=== PATIENT | male | born 1940 | race Hispanic/Latino ===

== ENCOUNTER 2022-06-23 03:50 | Emergency (ER) | payer OTHER ==
--- NOTE | 2022-06-23 05:39 | ER ---
Nurse's Notes [facility] Name: Albert Nails Age: 81 yrs Sex: Male : 1940 Arrival Date: 06/23/2022 Time: 03:57 Bed 6 Private MD: Diagnosis: Unspecified injury of head, initial encounter;Contusion of lower back and pelvis;Contusion of back wall of thorax Presentation: 06/23 03:57 Chief complaint: EMS states: Toned out for a fall after getting out of bed, pt c/o pain ll3 to scalp and back 10. Coronavirus screen: Vaccine status: Patient reports receiving the 2nd dose of the covid vaccine. At this time, the client does not indicate any symptoms associated with coronavirus-19. Ebola Screen: No symptoms or risks identified at this time. Initial Sepsis Screen: Does the patient meet any 2 criteria? No. Patient's initial sepsis screen is negative. Does the patient have a suspected source of infection? No. Patient's initial sepsis screen is negative. Risk Assessment: Do you want to hurt yourself or someone else? Patient reports no desire to harm self or others. Onset of symptoms was June 23, 2022. Care prior to arrival: None. 03:57 Method Of Arrival: EMS: [facility] 3 03:57 Acuity: HOANG 3 ll3 Triage Assessment: 04:00 General: Appears uncomfortable, Behavior is calm, cooperative. Pain: Complains of pain ll3 in right temporal area and back Pain does not radiate. Pain currently is 5 out of 10 on a pain scale. Pain began suddenly, Is continuous. Neuro: Level of Consciousness is awake, alert, obeys commands, Oriented to person, place, time, situation. Respiratory: Respiratory effort is even, unlabored, Respiratory pattern is regular, symmetrical. Derm: Skin is pink, warm \T\ dry. Musculoskeletal: Circulation, motion, and sensation intact. Historical: - Allergies: 04:00 No Known Allergies; ll3 - Home Meds: 04:00 aspirin Oral [Active]; Hydrochlorothiazide Oral [Active]; Lisinopril Oral [Active]; ll3 - PMHx: 04:00 Parkinson's disease; Dementia; Hypertensive disorder; ll3 - Immunization history:: Client reports receiving the 2nd dose of the Covid vaccine. - Social history:: Smoking status: Patient denies any tobacco usage or history of. - Family history:: not pertinent. - Hospitalizations: : No recent hospitalization is reported. Screenin:55 [facility] ED Fall Risk Assessment (Adult) History of falling in the last 3 months, ll3 including since admission Yes- single mechanical fall (1 pt) Confusion or Disorientation No (0 pts) Intoxicated or Sedated No (0 pts) Impaired Gait Yes (1 pt) Mobility Assist Device Used No (0 pt) Altered Elimination No (0 pt) Score/Fall Risk Level 0 - 2 = Low Risk Oriented to surroundings, Maintained a safe environment, Educated pt \T\ family on fall prevention, incl call for assistance when getting out of bed, Assessed \T\ reinforced patient's understanding of fall precautions. Humpty Dumpty Scale Fall Assessment Tool (age< 18yrs) Age 13 years and above (1 pt). Abuse screen: Denies threats or abuse. Denies injuries from another. Nutritional screening: No deficits noted. Tuberculosis screening: No symptoms or risk factors identified. Fall Risk Fall in past 12 months (25 points). Secondary diagnosis (15 points) dementia, No IV (0 pts). Ambulatory Aid- None/Bed Rest/Nurse Assist (0 pts). Gait- Weak (10 pts.). Mental Status- Overestimates/Forgets Limitations (15 pts.). Total Ayoub Fall Scale indicates High Risk Score (45 or more points). Fall prevention measures have been instituted. Side Rails Up X 2 Placed Close to Nursing Station Family Present and informed to notify staff if the need to leave the bedside As available patient and family educated on Fall Prevention Program and Strategies. Assessment: 04:02 General: See triage assessment. ll3 05:31 Reassessment: No changes from previously documented assessment. Patient and/or family ll3 updated on plan of care and expected duration. Pain level reassessed. Patient is alert, oriented x 3, equal unlabored respirations, skin warm/dry/pink. Vital Signs: 03:57 BP 158 / 81; Pulse 82; Resp 17; Temp 97.9(O); Pulse Ox 100% on R/A; Weight 72.57 kg ll3 (R); Height 5 ft. 6 in. (167.64 cm) (R); Pain 5/10; 05:31 BP 171 / 76; Pulse 73; Resp 16; Pulse Ox 96% on R/A; ll3 03:57 Body Mass Index 25.82 (72.57 kg, 167.64 cm) ll3 ED Course: 03:57 Patient arrived in ED. ds4 03:57 Herminio Monk MD is Attending Physician. rn 04:00 Triage completed. ll3 04:00 Arm band placed on Patient placed in an exam room, on a stretcher, on pulse oximetry. ll3 04:24 Head C Spine Mpr Wo Con In Process Unspecified. EDMS 04:36 XRAY Thoracic Spine (Ap/lat) In Process Unspecified. EDMS 04:36 XRAY Lumbar Spine (3 Views) In Process Unspecified. EDMS 04:36 XRAY Pelvis In Process Unspecified. EDMS 05:56 No provider procedures requiring assistance completed. Patient did not have IV access ll3 during this emergency room visit. 05:57 Patient has correct armband on for positive identification. Placed in gown. Bed in low ll3 position. Call light in reach. Side rails up X 1. Adult w/ patient. Administered Medications: No medications were administered Medication: 05:57 VIS not applicable for this client. ll3 Outcome: 05:38 Discharge ordered by . rn 05:56 Discharged to home ambulatory, with family. ll3 05:56 Condition: stable 05:56 Discharge instructions given to patient, family, Instructed on discharge instructions, follow up and referral plans. Demonstrated understanding of instructions, follow-up care. 05:57 Patient left the ED. ll3 Signatures: Dispatcher [employer] EDNV Herminio Monk MD MD rn Swanson, Donovan ds4 Ines Ibarra RN RN ll3
--- NOTE | 2022-06-23 05:39 | EDPHYS ---
Physician Documentation [facility] Name: Albert Nails Age: 81 yrs Sex: Male : 1940 Arrival Date: 06/23/2022 Time: 03:57 Bed 6 Private MD: ED Physician Herminio Monk HPI: 06/23 04:21 This 81 yrs old Male presents to ER via EMS with complaints of Fall Injury. rn 04:21 Details of fall: The patient fell from an upright position. Onset: The symptoms/episode rn began/occurred just prior to arrival. Associated injuries: The patient sustained injury to the head, upper back injury, injury to the low back. Severity of symptoms: At their worst the symptoms were very mild, in the emergency department the symptoms are unchanged. The patient has experienced similar episodes in the past. The patient has not recently seen a physician. EMS states patient s/p fall, possibly from standing, with "bump to head". Pt has parkinson's, recurrent falls and generalized weakness. NO fever or recent illness. Pt reports mild back pain as well. Denies extremity pain. . Historical: - Allergies: 04:00 No Known Allergies; ll3 - Home Meds: 04:00 aspirin Oral [Active]; Hydrochlorothiazide Oral [Active]; Lisinopril Oral [Active]; ll3 - PMHx: 04:00 Parkinson's disease; Dementia; Hypertensive disorder; ll3 - Immunization history:: Client reports receiving the 2nd dose of the Covid vaccine. - Social history:: Smoking status: Patient denies any tobacco usage or history of. - Family history:: not pertinent. - Hospitalizations: : No recent hospitalization is reported. ROS: 04:21 Constitutional: Negative for fever, chills, and weight loss, Eyes: Negative for injury, rn pain, redness, and discharge, Neck: Negative for injury, pain, and swelling, Cardiovascular: Negative for chest pain, palpitations, and edema, Respiratory: Negative for shortness of breath, cough, wheezing, and pleuritic chest pain, Abdomen/GI: Negative for abdominal pain, nausea, vomiting, diarrhea, and constipation, Back: + mid and lower back pain : Negative for injury, bleeding, discharge, and swelling, MS/Extremity: Negative for injury and deformity, Skin: Negative for injury, rash, and discoloration, Neuro: Negative for numbness, tingling, and seizure. Exam: 04:21 Constitutional: This is a well developed, well nourished patient who is awake, alert, rn and in no acute distress. Head/Face: Normocephalic, + contusion on top/back of scalp, no depression, no laceration Eyes: Periorbital areas with no swelling, redness, or edema. Neck: No midline cervical tenderness Chest/axilla: Normal chest wall appearance and motion. Nontender with no deformity. No lesions are appreciated. Cardiovascular: Regular rate and rhythm. No pulse deficits. Respiratory: No increased work of breathing, no retractions or nasal flaring. Abdomen/GI: Soft, non-tender Back: Mild mid thoracic and upper lumbar perispinal tenderness, no stepoff Skin: Warm, dry MS/ Extremity: Pulses equal, no cyanosis. Neurovascular intact. Full, normal range of motion. Equal circumference. Neuro: Awake and alert, GCS 15, oriented to person, place, and situation. Cranial nerves II-XII grossly intact. Motor strength 4/5 in all extremities. Sensory grossly intact. Vital Signs: 03:57 BP 158 / 81; Pulse 82; Resp 17; Temp 97.9(O); Pulse Ox 100% on R/A; Weight 72.57 kg ll3 (R); Height 5 ft. 6 in. (167.64 cm) (R); Pain 5/10; 05:31 BP 171 / 76; Pulse 73; Resp 16; Pulse Ox 96% on R/A; ll3 03:57 Body Mass Index 25.82 (72.57 kg, 167.64 cm) ll3 MDM: 03:57 Patient medically screened. rn 05:37 Differential diagnosis: abrasion, closed head injury, contusion, fracture, sprain, rn strain. Data reviewed: vital signs, nurses notes, lab test result(s), radiologic studies, CT scan, plain films, and as a result, I will discharge patient. Counseling: I had a detailed discussion with the patient and/or guardian regarding: the historical points, exam findings, and any diagnostic results supporting the discharge/admit diagnosis, lab results, radiology results, the need for outpatient follow up, to return to the emergency department if symptoms worsen or persist or if there are any questions or concerns that arise at home. Special discussion: Based on the patient's history, exam and DX evaluation, there is no indication for emergent intervention or inpatient TX. It is understood by the patient/guardian that if the SXs persist or worsen they need to return immediately for re-evaluation. I discussed with the patient/guardian in detail that at this point there is no indication for admission to the hospital. It is understood, however, that if the symptoms persist or worsen the patient needs to return immediately for re-evaluation. Further emergent ED testing is not indicated at this point in time. I discussed with the patient/guardian in detail the need to arrange with the PCP or specialist further outpatient testing, MRI, Based on the history and exam findings, there is no indication for further emergent testing or inpatient evaluation. I discussed with the patient/guardian the need to see the primary care provider for further evaluation of the symptoms. ED course: NO acute traumatic findings, discussed result and printed out CT cspine result regarding sclerotic focus in cervical spine and need for f/u and MRI as outpt, handed to son. . 06/23 03:58 Order name: CT Head C Spine rn 06/23 03:58 Order name: XRAY Thoracic Spine (Ap/lat) rn 06/23 03:58 Order name: XRAY Lumbar Spine (3 Views) rn 06/23 03:58 Order name: XRAY Pelvis rn 06/23 04:02 Order name: Head C Spine Mpr Wo Con EDMS Administered Medications: No medications were administered Disposition Summary: 06/23/22 05:38 Discharge Ordered Location: Home rn Problem: new rn Symptoms: have improved rn Condition: Stable rn Diagnosis - Unspecified injury of head, initial encounter rn - Contusion of lower back and pelvis rn - Contusion of back wall of thorax rn Followup: rn - With: Private Physician - When: As needed - Reason: Recheck today's complaints, Re-evaluation by your physician Discharge Instructions: - Discharge Summary Sheet rn - Contusion rn - Head Injury, Adult rn Forms: - Medication Reconciliation Form rn - Thank You Letter rn - Antibiotic airborne missions systems - Prescription Opioid Use rn Signatures: Dispatcher [employer] EDMS Herminio Monk MD MD rn Loubet, Lynsea, RN RN ll3
[2022-06-23 06:01] VITALS: TEMP 97.9
[2022-06-23 06:02] VITALS: BP 171/76; O2SAT 96
--- NOTE | 2022-06-23 14:17 | RAD REPORT ---
EXAM DESCRIPTION: CT - CTHCSPWOC - 06/23/2022 6:17 am CLINICAL HISTORY: The patient is 81 years old and is Male; fall, head injury TECHNIQUE: Axial computed tomography images of the head/brain and cervical spine without intravenous contrast. Sagittal and coronal reformatted images were created and reviewed. This CT exam was pe rformed using one or more of the following dose reduction techniques: automated exposure control, a djustment of the mA and/or kV according to patient size, and/or use of iterative reconstruction techn ique. COMPARISON: No relevant prior studies available. FINDINGS: BRAIN: No extra-axial fluid collection. No intracranial hemorrhage. No focal mc-white matter differentiation abnormality. Moderate global cerebral atrophy with commensurate sulcal and ventricular enlargement, not g reater than expected for patient age. Mild periventricular white matter changes, suggesting microangiopathy. MIDLINE SHIFT: No midline shift. VENTRICLES: See above. SKULL: See below. SINUSES: Unremarkable as visualized. No acute sinusitis. MASTOID AIR CELLS: Unremarkable as visualized. No mastoid effusion. ORBITS: Left lens replacement. VERTEBRAE: Small indeterminate well-circumscribed sclerotic focus within the right lateral body of the C5 vertebra (series CT #302, axial image 54). Multilevel degenerative changes of the cervical spine, greatest at the C5-6 and C6-7 levels, with no vertebral or facet subluxation, acute fracture, or dislocation. DISCS/SPINAL CANAL/NEURAL FORAMINA: No transtentorial herniation. No high-grade bony narrowing of the spinal canal, though there is at least moderate narrowin g of the left C2-3 neural foramina secondary to degenerative change. OTHER BONES/JOINTS: No fracture of the calvarium or visualized facial bones. SOFT TISSUES: Unremarkable. IMPRESSION: 1. No acute intracranial abnormality. 2. Chronic and senescent changes, not greater than expected for patient age. 3. Degenerative changes of cervical spine with no acute osseous abnormality. 4. Small indeterminate well-circumscribed sclerotic focus within the right lateral body of the C5 v ertebra (series CT #302, axial image 54). In the absence of known or suspected metastatic disease, th is is likely of no clinical significance. However, if felt clinically indicated, further evaluation b y bone scan could be performed to evaluate for potential sclerotic bone metastases. Electronically signed by: Miguel Jaimes MD 06/23/2022 4:50 AM CERAMIC MOLD DESIGNER Due to temporary technical issues with the PACS/Fluency reporting system, reports are being signed by the in house radiologists without review as a courtesy to insure prompt reporting. The interpreting radiologist is fully responsible for the content of the report.
--- NOTE | 2022-06-23 14:19 | RAD REPORT ---
EXAM DESCRIPTION: RAD - Thoracic Spine Ap/Lat - 06/23/2022 4:35 am CLINICAL HISTORY: The patient is 81 years old and is Male; PAIN TECHNIQUE: Frontal and lateral views of the thoracic spine. COMPARISON: No relevant prior studies available. FINDINGS: VERTEBRAE: Multilevel spondylosis with multilevel flowing osteophytes. No acute osseous abnormality or subluxation is appreciated. DISC SPACES: No acute findings. No significant narrowing. SOFT TISSUES: Unremarkable. IMPRESSION: No acute findings in the thoracic spine. Electronically signed by: Miguel Jaimes MD 06/23/2022 4:52 AM GYPSUM ROOFER Due to temporary technical issues with the PACS/Fluency reporting system, reports are being signed by the in house radiologists without review as a courtesy to insure prompt reporting. The interpreting radiologist is fully responsible for the content of the report.
--- NOTE | 2022-06-23 14:25 | RAD REPORT ---
EXAM DESCRIPTION: RAD - Lumbar Spine 3 Views - 06/23/2022 4:35 am CLINICAL HISTORY: The patient is 81 years old and is Male; PAIN TECHNIQUE: Frontal and lateral views of the lumbar spine and sacrum. COMPARISON: No relevant prior studies available. FINDINGS: VERTEBRAE: Multilevel spondylosis no significant vertebral body height loss, evidence o f acute fracture, or significant subluxation. SACRUM/COCCYX: Unremarkable as visualized. No acute fracture. DISC SPACES: No acute findings. No significant narrowing. SOFT TISSUES: Surgical clips redemonstrated overlying the bilateral pelvis. VASCULATURE: Vascular calcifications. GASTROINTESTINAL TRACT: Visualized bowel gas pattern is unremarkable. IMPRESSION: No acute findings in the lumbar spine. Electronically signed by: Miguel Jaimes MD 06/23/2022 4:54 AM PROFILE SHAPER OPERATOR Due to temporary technical issues with the PACS/Fluency reporting system, reports are being signed by the in house radiologists without review as a courtesy to insure prompt reporting. The interpreting radiologist is fully responsible for the content of the report.
--- NOTE | 2022-06-23 14:27 | RAD REPORT ---
EXAM DESCRIPTION: RAD - Pelvis - 06/23/2022 4:35 am CLINICAL HISTORY: The patient is 81 years old and is Male; BLUNT TRAUMA TECHNIQUE: Frontal view of the pelvis. COMPARISON: No relevant prior studies available. FINDINGS: BONES/JOINTS: Degenerative changes of the lumbosacral spine. No acute fracture. No dislocation. SOFT TISSUES: Surgical clips demonstrated overlying the bilateral pelvis. IMPRESSION: No acute findings in the pelvis. Electronically signed by: Miguel Jaimes MD 06/23/2022 4:56 AM GEM TECHNICIAN Due to temporary technical issues with the PACS/Fluency reporting system, reports are being signed by the in house radiologists without review as a courtesy to insure prompt reporting. The interpreting radiologist is fully responsible for the content of the report.
== END 2022-06-23 05:57 | disposition home or self-care (01) ==
LOC: ER 03:50
DX: S09.90XA Unspecified injury of head, initial encounter (principal); S30.0XXA Contusion of lower back and pelvis, initial encounter; S20.229A Contusion of unspecified back wall of thorax, initial encounter; I10 Essential (primary) hypertension; G20 Parkinson's disease; F02.80 Dementia in other diseases classified elsewhere, unspecified severity, without behavioral disturbance, psychotic disturbance, mood disturbance, and anxiety; Z79.82 Long term (current) use of aspirin
CPT/HCPCS: 70450; 72070; 72100; 72125; 72170; 99283

== ENCOUNTER 2022-08-01 10:12 | Emergency (ER) | payer OTHER ==
--- OUTSIDE RECORDS SUMMARY | 2022-08-01 10:15 | XMS REPORT | Continuity of Care Document ---
:1940 Author Organization [facility] t Address [address] [place] [address] Care Team Providers Name Role Phone Angela Snyder Attending Clinician Problems Condition Condition Condition Status Onset Resolution Last Treating Co mments Source Name Details Category Date Date Treatment Clinician Date G20 - G20 - Diagnosis Active 2016-12-22 Mem oria PARKINSON' PARKINSON' 12-11 19:31:00 l S DISEASE S DISEASE 00:01: Herm yulisa R41.3 - R41.3 - 00 OTHER OTHER Active 2016 SOFIYA Cardona Allergies, Adverse Reactions, Alerts This patient has no known allergies or adverse reactions. Medications This patient has no known medications. Procedures This patient has no known procedures. Encounters Start End Encounter Admission Attending Care Care Encounter Source Date/Time Date/Time Type Type Clinicians Facility Department ID 2016-12-23 2016-12-23 Outpt Diag nullFlavo [facility] [id number] Memoria 00:21:00 04:59:00 Services r Outpatient [address] [facility] 2016-12-23 2016-12-23 Outpt Diag lindaFlavmiriam [facility] [id number] Memoria 00:21:00 04:59:00 Services r Outpatient [address] [facility] 2016-12-22 2016-12-22 Outpatient JOSÉ LUIS Snyder [facility] [id number] 19:21:00 23:59:00 Angela Gonsalves Results This patient has no known results.
--- NOTE | 2022-08-01 11:13 | RAD REPORT ---
EXAM DESCRIPTION: RAD - Chest Single View - 08/01/2022 10:48 am CLINICAL HISTORY: AMS COMPARISON: None TECHNIQUE: AP portable chest image was obtained 08/01/2022 10:48 am . FINDINGS: No acute lung parenchymal process. Very minimal interstitial pattern present believed be b aseline. Heart and vasculature are normal. No measurable pleural effusion and no pneumothorax. No acu te bony abnormality seen. No acute aortic findings suspected. IMPRESSION: No acute cardiopulmonary process.
[2022-08-01 11:24] LABS: Albumin 3.9 g/dL (3.4-5.0); Bilirubin Total 0.9 mg/dL (0.2-1.0); Potassium 3.9 mmol/L (3.5-5.1); Protein, Total 7.7 g/dL (6.4-8.2); Thyroid Stimulating Hormone 0.858 uIU/mL (0.358-3.740); Troponin High Sensitivity 11.9 pg/mL (<58.9)
[2022-08-01 11:49] LABS: Urine Blood Negative (Negative); Urine Glucose Negative (Negative); Urine Protein 1+ (Negative); Urine Specific Gravity 1.025 (1.005-1.030)
[2022-08-01 11:56] LABS: Absolute Lymphocytes (CBC) 1.2 K/uL (0.7-4.9); Hematocrit 42.3 % (39.6-49.0); Lymphocytes % 23.9 % (15.3-44.8); MPV 8.9 fL (7.6-11.3)
[2022-08-01 11:59] LABS: Urine Bacteria None Seen /HPF (<20); Urine Mucus 2+ /HPF (None Seen); Urine RBC <5 /HPF (None Seen)
--- NOTE | 2022-08-01 12:28 | RAD REPORT ---
EXAM DESCRIPTION: CT - Head Brain Wo Cont - 08/01/2022 12:21 pm CLINICAL HISTORY: Mental status change, unknown cause COMPARISON: No comparisons TECHNIQUE: All CT scans are performed using dose optimization technique as appropriate and may inclu de automated exposure control or mA/KV adjustment according to patient size. FINDINGS: No intracranial hemorrhage, hydrocephalus or extra-axial fluid collection.No areas of brai n edema or evidence of midline shift. Mild chronic small vessel ischemic changes. Cerebral atrophy wh ich is mild age advanced. The paranasal sinuses and mastoids are clear. The calvarium is intact. IMPRESSION: No acute intracranial abnormality.
--- NOTE | 2022-08-01 14:06 | EDPHYS ---
Physician Documentation [facility] Name: Albert Nails Age: 81 yrs Sex: Male : 1940 Arrival Date: 08/01/2022 Time: 10:13 Bed 19 Private MD: Gato Robison V ED Physician Da Johnson HPI: 08/01 14:07 This 81 yrs old Male presents to ER via Ambulatory with complaints of S/S of rt Possible Stroke. 14:07 Patient presents to the ED with his sons for not speaking, decline in his mental state. rt The patient is not opening his mouth which concerned his sons. He has a longstanding history of Parkinson's disease with waxing and waning symptoms. Denies injury, other acute complaints. Symptoms are moderate in severity, no other aggravating or alleviating factors.. Historical: - Home Meds: 12:12 Aspirin Oral [Active]; Hydrochlorothiazide Oral [Active]; lisinopril Oral [Active]; eh3 - PMHx: 12:12 Dementia; Hypertensive disorder; Parkinson's disease; eh3 - Immunization history:: Adult Immunizations up to date. - Social history:: Smoking status: unknown. - Family history:: not pertinent. ROS: 14:07 Constitutional: Negative for fever, chills, and weight loss, Eyes: Negative for injury, rt pain, redness, and discharge, Cardiovascular: Negative for chest pain, palpitations, and edema, Respiratory: Negative for shortness of breath, cough, wheezing, and pleuritic chest pain, Abdomen/GI: Negative for abdominal pain, nausea, vomiting, diarrhea, and constipation, Skin: Negative for injury, rash, and discoloration. 14:07 Neuro: Positive for Decrease in the amount of speech, no facial droop. Exam: 14:07 Radiologist reports: No acute findings rt 14:07 ECG was reviewed by the Attending Physician. 14:07 Neuro: Paucity of speech, follows instructions, moves all 4 extremities equally. Sensation not testable. 14:07 Psych: Not assessable. Vital Signs: 10:20 BP 172 / 80; Pulse 64; Resp 16; Temp 98.0; Pulse Ox 99% on R/A; Pain 0/10; hb 12:00 BP 175 / 90; Pulse 59; Resp 18; Pulse Ox 100% on R/A; eh3 13:00 BP 184 / 89; Pulse 62; Resp 20; Pulse Ox 100% on R/A; eh3 14:00 BP 188 / 78; Pulse 61; Resp 18; Pulse Ox 99% on R/A; eh3 MDM: 10:25 Patient medically screened. rt 14:10 Differential diagnosis: CVA, TIA, Dementia, Parkinson disease, metabolic disorder. Data rt reviewed: vital signs, nurses notes, lab test result(s), EKG, radiologic studies. Management of patient was discussed with the following: Primary Care Provider: Believes that Parkinson's disease is worsening, no need to admit to the hospital.. I considered the following discharge prescriptions or medication management in the emergency department Antibiotics: At this time antibiotics are not recommended. Test considered but Not performed: MRI: Low suspicion for acute CVA, no lateralizing deficits. Counseling: I had a detailed discussion with the patient and/or guardian regarding: the need for outpatient follow up, a family practitioner. 08/01 10:26 Order name: CBC with Diff; Complete Time: 12:02 rt 08/01 10:26 Order name: CMP; Complete Time: 11:40 rt 08/01 10:26 Order name: Troponin High Sensitivity; Complete Time: 11:40 rt 08/01 10:26 Order name: UA MICROSCOPIC; Complete Time: 12:02 rt 08/01 10:26 Order name: CPK; Complete Time: 11:40 rt 08/01 10:26 Order name: TSH; Complete Time: 11:40 rt 08/01 10:26 Order name: EKG; Complete Time: 10:27 rt 08/01 10:26 Order name: EKG - Nurse/Tech; Complete Time: 10:45 rt 08/01 10:26 Order name: Chest Single View XRAY; Complete Time: 11:17 rt 08/01 10:26 Order name: Urine Dipstick-Ancillary (obtain specimen); Complete Time: 14:13 rt 08/01 11:49 Order name: Urine Dipstick-Ancillary; Complete Time: 12:02 EDMS 08/01 12:03 Order name: CT Head Brain wo Cont rt 08/01 12:07 Order name: Head Brain Wo Cont; Complete Time: 14:00 EDMS EC:07 Rate is 57 beats/min. Rhythm is regular, Normal Sinus Rhythm with No ectopy. QRS Point [place]fort rt is Normal. AK interval is normal. QRS interval is normal. QT interval is normal. No Q waves. T waves are Normal. No ST changes noted. Interpreted by me. Administered Medications: No medications were administered Disposition Summary: 08/01/22 14:05 Discharge Ordered Location: Home rt Problem: an acute exacerbation rt Symptoms: have improved rt Condition: Stable rt Diagnosis - Parkinson's disease rt Followup: rt - With: Gato Robison MD - When: 2 - 3 days - Reason: Discharge Instructions: - Discharge Summary Sheet rt - Parkinson's Disease rt Forms: - Medication Reconciliation Form rt - Thank You Letter rt - Antibiotic Education rt - Prescription Opioid Use rt Signatures: Dispatcher [employer] EDBonita Hicks RN RN 3 Da Johnson MD MD rt
--- NOTE | 2022-08-01 14:06 | ER ---
Nurse's Notes [facility] Name: Albert Nails Age: 81 yrs Sex: Male : 1940 Arrival Date: 08/01/2022 Time: 10:13 Bed 19 Private MD: Gato Robison V Diagnosis: Parkinson's disease Presentation: 08/01 10:20 Chief complaint: Unable to open mouth this morning per son. Last known normal was last hb night at approx 8pm. Hx of Parkinsons. Coronavirus screen: At this time, the client does not indicate any symptoms associated with coronavirus-19. Ebola Screen: No symptoms or risks identified at this time. 10:20 Method Of Arrival: Ambulatory hb 10:20 Initial Sepsis Screen: Does the patient meet any 2 criteria? No. Patient's initial hb sepsis screen is negative. Does the patient have a suspected source of infection? No. Patient's initial sepsis screen is negative. Risk Assessment: Do you want to hurt yourself or someone else? Patient reports no desire to harm self or others. Onset of symptoms was August 01, 2022. 10:20 Acuity: HOANG 3 hb Historical: - Home Meds: 12:12 Aspirin Oral [Active]; Hydrochlorothiazide Oral [Active]; lisinopril Oral [Active]; eh3 - PMHx: 12:12 Dementia; Hypertensive disorder; Parkinson's disease; eh3 - Immunization history:: Adult Immunizations up to date. - Social history:: Smoking status: unknown. - Family history:: not pertinent. Screenin:12 [facility] ED Fall Risk Assessment (Adult) History of falling in the last 3 months, eh3 including since admission No falls in past 3 months (0 pts) Confusion or Disorientation Yes (5 pts) Intoxicated or Sedated No (0 pts) Impaired Gait No (0 pts) Mobility Assist Device Used No (0 pt) Altered Elimination No (0 pt) Score/Fall Risk Level 0 - 2 = Low Risk. Abuse screen: Denies threats or abuse. Denies injuries from another. Nutritional screening: No deficits noted. Tuberculosis screening: No symptoms or risk factors identified. Assessment: 10:16 Reassessment: Dr. Johnson at bedside to evaluate pt. hb 12:10 General: Appears in no apparent distress. comfortable, Behavior is calm, cooperative, eh3 appropriate for age. Pain: Denies pain. Neuro: Level of Consciousness is awake, alert, obeys commands, Oriented to person, place, time, situation. Cardiovascular: Capillary refill < 3 seconds Patient's skin is warm and dry. Respiratory: Airway is patent Respiratory effort is even, unlabored, Respiratory pattern is regular, symmetrical. 13:00 Reassessment: Patient appears in no apparent distress at this time. Patient and/or 3 family updated on plan of care and expected duration. Pain level reassessed. Patient is alert, oriented x 3, equal unlabored respirations, skin warm/dry/pink. 14:00 Reassessment: Patient appears in no apparent distress at this time. Patient and/or 3 family updated on plan of care and expected duration. Pain level reassessed. Patient is alert, oriented x 3, equal unlabored respirations, skin warm/dry/pink. Vital Signs: 10:20 BP 172 / 80; Pulse 64; Resp 16; Temp 98.0; Pulse Ox 99% on R/A; Pain 0/10; hb 12:00 BP 175 / 90; Pulse 59; Resp 18; Pulse Ox 100% on R/A; eh3 13:00 BP 184 / 89; Pulse 62; Resp 20; Pulse Ox 100% on R/A; eh3 14:00 BP 188 / 78; Pulse 61; Resp 18; Pulse Ox 99% on R/A; eh3 Vitals: 12:00 Cardiac Rhythm Assessment Sinus chris. eh3 ED Course: 10:13 Patient arrived in ED. mr 10:14 Gato Robison MD is Private Physician. mr 10:14 Jeevan Gibbons, DONTE is Primary Nurse. bp 10:15 Da Johnson MD is Attending Physician. rt 10:22 Triage completed. hb 10:50 Chest Single View XRAY In Process Unspecified. EDMS 10:50 Inserted saline lock: 22 gauge in right antecubital area, using aseptic technique. bp Blood collected. 11:29 Patient has correct armband on for positive identification. Bed in low position. Call mm9 light in reach. Side rails up X 1. Adult w/ patient. Warm blanket given. quality assurance monitor body on. Pulse ox on. NIBP on. 12:10 Arm band placed on. eh3 12:23 Head Brain Wo Cont In Process Unspecified. EDMS 13:00 Cleaned of incontinence. eh3 14:05 Gato Robison MD is Referral Physician. rt 14:08 No provider procedures requiring assistance completed. IV discontinued, intact, eh3 bleeding controlled, No redness/swelling at site. Pressure dressing applied. Administered Medications: No medications were administered Medication: 14:08 VIS not applicable for this client. eh3 Outcome: 14:05 Discharge ordered by MD. rt 14:14 Discharged to home ambulatory, with family. eh3 14:14 Condition: stable 14:14 Discharge instructions given to patient, family, Instructed on discharge instructions, follow up and referral plans. Demonstrated understanding of instructions, follow-up care. 14:19 Patient left the ED. eh3 Signatures: Dispatcher [employer] EDTN CortezLilli Heather, RN RN Jeevan Guzman, Bonita Gonzalez RN, DONTE KENT eh3 Jeaneth Ley mm9 Da Johnson MD MD rt
[2022-08-01 14:44] VITALS: TEMP 98
[2022-08-01 14:48] VITALS: BP 188/78; O2SAT 99
== END 2022-08-01 14:19 | disposition home or self-care (01) ==
LOC: ER 10:12
DX: G20 Parkinson's disease (principal); F03.90 Unspecified dementia, unspecified severity, without behavioral disturbance, psychotic disturbance, mood disturbance, and anxiety; I10 Essential (primary) hypertension; Z79.82 Long term (current) use of aspirin
CPT/HCPCS: 36415; 70450; 71045; 80053; 81003; 81015; 82550; 84443; 84484; 85025; 93005; 99284

== ENCOUNTER 2022-08-06 14:31 | Emergency (ER) | payer OTHER ==
--- OUTSIDE RECORDS SUMMARY | 2022-08-06 14:34 | XMS REPORT | Continuity of Care Document ---
:1940 [address] [facility] t Address [address] [place] [address] Care Team Providers Name Role Phone Angela [...] Department ID 2016-12-23 2016-12-23 Outpt Diag nullFlavo [facility] [id number] Memoria 00:21:00 04:59:00 Services r Outpatient 00 l Imaging [facility] 2016-12-23 2016-12-23 Outpt Diag lindaFlavmiriam [facility] [id number] Memoria 00:21:00 04:59:00 Services r Outpatient 00 l Imaging [facility] 2016-12-22 2016-12-22 Outpatient JOSÉ LUIS Snyder [facility] [id number] 19:21:00 23:59:00 Angela Gonsalves Results This patient has no known results.
--- NOTE | 2022-08-06 15:36 | RAD REPORT ---
EXAM DESCRIPTION: CT - Head C Spine Mpr Wo Con - 08/06/2022 3:23 pm CLINICAL HISTORY: Head and neck injury status post fall. Head and neck pain COMPARISON: For 2021 TECHNIQUE: Computed axial tomography of the head and cervical spine was obtained. Sagittal and coronal reconstruction was performed. All CT scans are performed using dose optimization technique as appropriate and may include automated exposure control or mA/KV adjustment according to patient size. FINDINGS: An intracranial bleed is not seen. The ventricles are normal in caliber. No significant hypodensity within the brain. An extra-axial fluid collection is not noted. Fluid within the visualized sinuses and mastoids is not seen A cervical fracture is not visualized. No dislocation is noted. Spondylosis cervical spine IMPRESSION: No acute intracranial abnormality is seen. A cervical fracture is not visualized. If the patient continues to have symptoms to suggest intracranial /spinal cord pathology then MRI wou ld be recommended
[2022-08-06 16:02] LABS: Hematocrit 40.7 % (39.6-49.0); Lymphocytes % 18.1 % (15.3-44.8); MCV 89.5 fL (80-100); MPV 8.1 fL (7.6-11.3); RBC Red Blood Cell Count 4.55 M/uL (4.33-5.43)
[2022-08-06 16:16] LABS: Potassium 4.1 mmol/L (3.5-5.1)
[2022-08-06 17:01] LABS: Urine Blood Negative (Negative); Urine Glucose Negative (Negative); Urine Protein 2+ (Negative); Urine Specific Gravity 1.025 (1.005-1.030)
--- NOTE | 2022-08-06 17:05 | EDPHYS ---
Physician Documentation [facility] Name: Albert Nails Age: 81 yrs Sex: Male : 1940 Arrival Date: 08/06/2022 Time: 14:32 Bed 6 Private MD: ED Physician Zaheer Pink HPI: 08/06 18:08 This 81 yrs old Male presents to ER via Wheelchair with complaints of Syncope, kdr Fall Injury. 18:08 Patient reportedly passed out about 30 minutes prior to arrival. Family was concerned kdr because he fell backward onto his buttocks and hit his head. Patient does take aspirin daily. Due to the patient's underlying dementia, he from time to time is not cooperative with food intake or taking his medicines. He has been 1 of those spells in the last day or so. Patient currently has no outward injury or specific or focal complaint at this time. He did relate the events of the fall to me in a way that appear to be accurate according to the family members in attendance. The family remain concerned about a potential head injury and dehydration. Patient otherwise was nontoxic and appearing and did not require emergent intervention. Onset: The symptoms/episode began/occurred suddenly, just prior to arrival. Severity of symptoms: At their worst the symptoms were mild in the emergency department the symptoms have resolved. The patient has not experienced similar symptoms in the past. The patient has been recently seen at the [facility] Emergency Department, last week. Historical: - Allergies: 14:47 No Known Allergies; ll1 - Home Meds: 17:03 Aspirin Oral [Active]; Hydrochlorothiazide Oral [Active]; lisinopril Oral [Active]; eh3 - PMHx: 14:47 Dementia; Hypertensive disorder; Parkinson's disease; ll1 - Immunization history:: Client reports receiving the 2nd dose of the Covid vaccine. - Social history:: Smoking status: Patient denies any tobacco usage or history of. ROS: 18:08 Constitutional: Negative for fever, chills, and weight loss, review of systems obtained kdr from family Eyes: Negative for injury, pain, redness, and discharge, Neck: Negative for injury, pain, and swelling, Cardiovascular: Negative for chest pain, palpitations, and edema, Respiratory: Negative for shortness of breath, cough, wheezing, and pleuritic chest pain, Abdomen/GI: Negative for abdominal pain, nausea, vomiting, diarrhea, and constipation, Back: Negative for injury and pain, : Negative for injury, bleeding, discharge, and swelling, MS/Extremity: Negative for injury and deformity, Skin: Negative for injury, rash, and discoloration, Allergy/Immunology: Negative for hives, rash, and allergies, Endocrine: Negative for neck swelling, polydipsia, polyuria, polyphagia, and marked weight changes, Hematologic/Lymphatic: Negative for swollen nodes, abnormal bleeding, and unusual bruising. 18:08 Neuro: Positive for The patient appeared to be at his baseline generally speaking, given his underlying dementia his behavior was at times seemingly inconsistent according to family but overall did seem to be more normal progression. Patient did complain of some very minor occipital pain on palpation but otherwise had no focal complaint.. Exam: 18:08 Constitutional: This is a well developed, well nourished patient who is awake, alert, kdr and in no acute distress. Eyes: Pupils equal round and reactive to light, extra-ocular motions intact. Lids and lashes normal. Conjunctiva and sclera are non-icteric and not injected. Cornea within normal limits. Periorbital areas with no swelling, redness, or edema. Neck: Trachea midline, no thyromegaly or masses palpated, and no cervical lymphadenopathy. Supple, full range of motion without nuchal rigidity, or vertebral point tenderness. No Meningismus. Chest/axilla: Normal chest wall appearance and motion. Nontender with no deformity. No lesions are appreciated. Cardiovascular: Regular rate and rhythm with a normal S1 and S2. No gallops, murmurs, or rubs. Normal PMI, no JVD. No pulse deficits. Respiratory: Lungs have equal breath sounds bilaterally, clear to auscultation and percussion. No rales, rhonchi or wheezes noted. No increased work of breathing, no retractions or nasal flaring. Abdomen/GI: Soft, non-tender, with normal bowel sounds. No distension or tympany. No guarding or rebound. No evidence of tenderness throughout. Back: No spinal tenderness. No costovertebral tenderness. Full range of motion. Skin: Warm, dry with normal turgor. Normal color with no rashes, no lesions, and no evidence of cellulitis. MS/ Extremity: Pulses equal, no cyanosis. Neurovascular intact. Full, normal range of motion. 18:08 Head/face: Noted is contusion, that is superficial, of the left side of the back of head and right side of the back of head, tenderness, that is mild, of the left side of the back of head and right side of the back of head. Vital Signs: 14:47 BP 121 / 80; Pulse 63; Resp 18; Temp 97.0; Pulse Ox 98% ; Weight 73.03 kg; Height 5 ft. ll1 6 in. (167.64 cm); Pain 6/10; 15:30 BP 146 / 78; Pulse 59; Resp 18; Pulse Ox 99% on R/A; eh3 16:00 BP 146 / 77; Pulse 65; Resp 19; Pulse Ox 99% on R/A; eh3 16:30 BP 163 / 85; Pulse 65; Resp 19; Pulse Ox 100% on R/A; eh3 14:47 Body Mass Index 25.99 (73.03 kg, 167.64 cm) ll1 MDM: 17:04 Patient medically screened. kdr 18:08 Data reviewed: vital signs, nurses notes. Management of patient was discussed with the [facility] following: Family. I considered the following discharge prescriptions or medication management in the emergency department I discussed and recommended Over The Counter medications, Medications were administered in the Emergency Department. See SEP. 08/06 15:13 Order name: Basic Metabolic Panel; Complete Time: 17:01 kdr 08/06 15:13 Order name: CBC with Diff; Complete Time: 17: kdr 08/06 15:13 Order name: Type And Screen kdr 08/06 15:13 Order name: CT Head C Spine; Complete Time: 17:01 kdr 08/06 17:01 Order name: Urine Dipstick-Ancillary; Complete Time: 17:02 EDMS 08/06 15:13 Order name: Labs collected and sent; Complete Time: 15:55 kdr 02 15:13 Order name: Urine Dipstick-Ancillary (obtain specimen); Complete Time: 17: kdr 08/06 16:01 Order name: Labs - recollect needed: recollect type and screen; Complete Time: 17:01 bd Administered Medications: 17:15 Drug: NS 0.9% 500 ml Route: IV; Rate: bolus; Site: right antecubital; eh3 18:00 Follow up: Response: No adverse reaction; IV Status: Completed infusion; IV Intake: ph 500ml 17:15 Drug: Bactrim (trimethoprim-sulfamethoxazole) (160 mg-800 mg (DS) 1 tablet Route: PO; [facility] 17:20 Follow up: Response: No adverse reaction ph Point of Care Testing: Blood Glucose: 15:00 Blood Glucose: 92 mg/dL; [facility] Ranges: Critical Glucose Levels:Adult <50 mg/dl or >400 mg/dl <40 mg/dl or >180 mg/dl Disposition Summary: 08/06/22 17:04 Discharge Ordered Location: Home kdr Problem: new kdr Symptoms: are resolved kdr Condition: Stable kdr Diagnosis - Fall on same level from slipping, tripping and stumbling with subsequent striking kdr against object - Fall from standing, head injury, minor to mild dehydration, urinary tract infection kdr Followup: kdr - With: Private Physician - When: 2 - 3 days - Reason: If symptoms return, Further diagnostic work-up, Recheck today's complaints, Continuance of care, Re-evaluation by your physician Discharge Instructions: - Discharge Summary Sheet kdr - Urinary Tract Infection, Adult, [id number] kdr - Head Injury, Adult, [id number] kdr - Dehydration, Elderly, [id number] kdr Forms: - Medication Reconciliation Form kdr - Thank You Letter kdr - Antibiotic Education kdr Prescriptions: - Bactrim DS 800-160 mg Oral Tablet - take 1 tablet by ORAL route every 12 hours for 3 days; 6 tablet; Refills: 0, kdr Product Selection Permitted Signatures: Dispatcher [employer] Geri Lew Kevin, MD MD kdr Yony Pryor RN RN 1 Bonita Peterson RN RN 3 Lawanda Peterson RN
--- NOTE | 2022-08-06 17:05 | ER ---
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 Fell onto buttocks and hit ll1 head. Aspirin daily. Didn't eat much today, not wanting to take his meds this week. Coronavirus screen: Vaccine status: Patient reports receiving the 2nd dose of the covid vaccine. Client denies travel out of the [place] in the last 14 days. At this time, the client does not indicate any symptoms associated with coronavirus-19. Ebola Screen: Patient denies travel to an Ebola-affected area in the 21 days before illness onset. Initial Sepsis Screen: Does the patient meet any 2 criteria? No. Patient's initial sepsis screen is negative. Does the patient have a suspected source of infection? No. Patient's initial sepsis screen is negative. Risk Assessment: Do you want to hurt yourself or someone else? Patient reports no desire to harm self or others. Onset of symptoms was August 06, 2022. 14:47 Method Of Arrival: Wheelchair ll1 14:47 Acuity: HOANG 2 ll1 14:55 Care prior to arrival: None. Mechanism of Injury: Fall from standing position. Trauma ph event details: Injury occurred in the [facility], Injury occurred: at home. Injury occurred: August 06, 2022. Triage Assessment: 14:49 General: Appears uncomfortable, ill, Behavior is calm, cooperative, appropriate for ll1 age. Pain: Complains of pain in buttocks Quality of pain is described as aching. Neuro: Reports a syncopal episode weakness. Musculoskeletal: Reports pain in buttocks. Injury Description: Bruise. Trauma Activation: Physician: ED Physician; Name: Joesph; Notified At: 14:55; Arrived At: Physician: General Surgeon; Name: ; Notified At: ; Arrived At: Physician: Radiology; Name: Yajaira; Notified At: 14:55; Arrived At: 14:59 Physician: Respiratory; Name: ; Notified At: ; Arrived At: Physician: Lab; Name: ; Notified At: ; Arrived At: Historical: - Allergies: 14:47 No Known Allergies; ll1 - Home Meds: 17:03 Aspirin Oral [Active]; Hydrochlorothiazide Oral [Active]; lisinopril Oral [Active]; eh3 - PMHx: 14:47 Dementia; Hypertensive disorder; Parkinson's disease; ll1 - Immunization history:: Client reports receiving the 2nd dose of the Covid vaccine. - Social history:: Smoking status: Patient denies any tobacco usage or history of. Screenin:00 [facility] ED Fall Risk Assessment (Adult) History of falling in the last 3 months, eh3 including since admission Yes- single mechanical fall (1 pt) Confusion or Disorientation Yes (5 pts) Intoxicated or Sedated No (0 pts) Impaired Gait Yes (1 pt) Mobility Assist Device Used No (0 pt) Altered Elimination No (0 pt) Score/Fall Risk Level 3 or more points = High Risk Oriented to surroundings, Maintained a safe environment, Educated pt \T\ family on fall prevention, incl call for assistance when getting out of bed, Assessed \T\ reinforced patient's understanding of fall precautions, Hourly rounding (assess needs \T\ fall precautionary measures) done, Utilized family, sitter, or virtual airline manager as indicated. Abuse screen: Denies threats or abuse. Denies injuries from another. Nutritional screening: No deficits noted. Tuberculosis screening: No symptoms or risk factors identified. Assessment: 15:00 General: Appears in no apparent distress. uncomfortable, Behavior is calm, cooperative, eh3 appropriate for age. Pain: Complains of pain in head and buttocks. Neuro: Level of Consciousness is awake, alert, obeys commands, Oriented to person, place, situation. Cardiovascular: Capillary refill < 3 seconds Patient's skin is warm and dry. Rhythm is sinus rhythm. Respiratory: Airway is patent Respiratory effort is even, unlabored, Respiratory pattern is regular, symmetrical. GI: No signs and/or symptoms were reported involving the gastrointestinal system. Abdomen is round non-distended. : No signs and/or symptoms were reported regarding the genitourinary system. EENT: No signs and/or symptoms were reported regarding the EENT system. Derm: No signs and/or symptoms reported regarding the dermatologic system. Skin is pink, warm \T\ dry. Musculoskeletal: No signs and/or symptoms reported regarding the musculoskeletal system. Circulation, motion, and sensation intact. 15:07 Reassessment: Pt taken to CT via stretcher. ph 16:00 Reassessment: Patient appears in no apparent distress at this time. Patient and/or 3 family updated on plan of care and expected duration. Pain level reassessed. Patient is alert, oriented x 3, equal unlabored respirations, skin warm/dry/pink. 17:00 Reassessment: Patient appears in no apparent distress at this time. Patient and/or 3 family updated on plan of care and expected duration. Pain level reassessed. Patient is alert, oriented x 3, equal unlabored respirations, skin warm/dry/pink. 17:20 Reassessment: Pt discharged but must complete 500mL NS bolus per Dr. Pink before [facility] leaving. Vital Signs: 14:47 BP 121 / 80; Pulse 63; Resp 18; Temp 97.0; Pulse Ox 98% ; Weight 73.03 kg; Height 5 ft. ll1 6 in. (167.64 cm); Pain 6/10; 15:30 BP 146 / 78; Pulse 59; Resp 18; Pulse Ox 99% on R/A; eh3 16:00 BP 146 / 77; Pulse 65; Resp 19; Pulse Ox 99% on R/A; eh3 16:30 BP 163 / 85; Pulse 65; Resp 19; Pulse Ox 100% on R/A; eh3 14:47 Body Mass Index 25.99 (73.03 kg, 167.64 cm) ll1 ED Course: 14:32 Patient arrived in ED. as 14:49 Triage completed. ll1 14:49 Arm band placed on Patient placed in an exam room, on a stretcher. ll1 14:56 Lawanda Peterson, RN is Primary Nurse. ph 14:59 Patient maintains SpO2 saturation greater than 95% on room air. Thermoregulation: warm ph blanket given to patient. 15:00 Patient has correct armband on for positive identification. Bed in low position. Call [facility] light in reach. Side rails up X2. Adult w/ patient. Client placed on continuous cardiac and pulse oximetry monitoring. NIBP monitoring applied. Door closed. Noise minimized. Warm blanket given. 15:10 Zaheer Pink MD is Attending Physician. kdr 15:25 CT Head C Spine In Process Unspecified. EDMS 17:04 No provider procedures requiring assistance completed. eh3 18:03 IV discontinued, intact, bleeding controlled, No redness/swelling at site. Pressure ph dressing applied. Administered Medications: 17:15 Drug: NS 0.9% 500 ml Route: IV; Rate: bolus; Site: right antecubital; 3 18:00 Follow up: Response: No adverse reaction; IV Status: Completed infusion; IV Intake: ph 500ml 17:15 Drug: Bactrim (trimethoprim-sulfamethoxazole) (160 mg-800 mg (DS) 1 tablet Route: PO; 3 17:20 Follow up: Response: No adverse reaction ph Medication: 17:04 VIS not applicable for this client. 3 Point of Care Testing: Blood Glucose: 15:00 Blood Glucose: 92 mg/dL; 3 Ranges: Intake: 18:00 IV: 500ml; Total: 500ml. ph Outcome: 17:04 Discharge ordered by . kdr 18:03 Patient left the ED. eh3 18:03 Discharged to home with family. ph 18:03 Condition: good 18:03 Discharge instructions given to patient, family, Instructed on discharge instructions, follow up and referral plans. medication usage, Demonstrated understanding of instructions, follow-up care, medications, Prescriptions given X 1. Signatures: Dispatcher [employer] [facility] Zaheer Pink MD MD kdr Martinez, Amelia as Hall, Patricia, DONTE RN Yony Pryor RN RN [facility] Bonita Peterson RN RN 3
[2022-08-06 18:07] VITALS: TEMP 97
[2022-08-06 18:11] VITALS: BP 163/85; O2SAT 100
== END 2022-08-06 18:03 | disposition home or self-care (01) ==
LOC: ER 14:31
DX: E86.0 Dehydration (principal); N39.0 Urinary tract infection, site not specified; S09.90XA Unspecified injury of head, initial encounter; W01.198A Fall on same level from slipping, tripping and stumbling with subsequent striking against other object, initial encounter; G20 Parkinson's disease; F02.80 Dementia in other diseases classified elsewhere, unspecified severity, without behavioral disturbance, psychotic disturbance, mood disturbance, and anxiety; I10 Essential (primary) hypertension; Z79.82 Long term (current) use of aspirin
CPT/HCPCS: 36415; 70450; 72125; 80048; 81003; 85025; 86850; 86900; 86901